=== PATIENT | female | born 1985 | race Caucasian/White ===

== ENCOUNTER 2017-08-12 12:53 | Emergency (ER) | payer MEDICAID ==
[~2017-08-12] VITALS: Ht 170.2 cm; Wt 59.0 kg
[2017-08-12 13:11] VITALS: BP 105/54
== END 2017-08-12 13:59 | disposition home or self-care (01) ==
LOC: ER 12:53
DX: N39.0 Urinary tract infection, site not specified (principal)
CPT/HCPCS: 81002